=== PATIENT | female | born 1940 | race Caucasian/White ===

== ENCOUNTER 2025-05-08 14:33 | Emergency (ER) | payer MEDICARE, OTHER, SELFPAY ==
[2025-05-08] VITALS (13 sets, daily range): BP systolic 123–169; BP diastolic 88–119; PULSE 73–82
[2025-05-08] MEDS: NSS 500 IV (15:35)
[2025-05-08 15:47] LABS: Hematocrit 38.7 % (37.0-47.0); Hemoglobin 13.1 g/dL (12.0-16.0); Mean Corp Hgb Conc. 33.9 g/dL (33.0-37.0); Mean Corpuscular Volume 96.0 fL (81.0-99.0); Nucleated Red Blood Cells % 0 %; Platelet Count 284 10^3/uL (130-400); Red Cell Dist. Width 12.8 % (11.5-14.5)
[2025-05-08 16:07] LABS: ALT (SGPT) 17 U/L (0-35); AST (SGOT) 25 U/L (14-36); Albumin 4.0 g/dl (3.5-5.0); Alkaline Phosphatase 75 U/L (38-126); Blood Urea Nitrogen 25 mg/dl (7-17); Calcium 9.4 mg/dl (8.4-10.2); Carbon Dioxide 28 mmol/L (22-30); Chloride 106 mmol/L (98-107); Glucose 84 mg/dl (70-99); Magnesium 2.1 mg/dl (1.6-2.3); Potassium 4.3 mmol/L (3.5-5.1); Sodium 139 mmol/L (135-145); Total Protein 6.7 g/dl (6.3-8.2); eGFR 56.25
[2025-05-08 16:38] LABS: TSH 5.16 uIU/ml (0.47-4.68)
--- NOTE | 2025-05-08 18:46 | ED.GENMED ---
History of Present Illness
General
Chief Complaint: Heart Rate Problem
Source: patient
Time Seen by Provider: 05/08/25 14:50
History of Present Illness
History of Present Illness:
Note:
CHIEF COMPLAINT(S)
Dizziness and lightheadedness.
HISTORY OF PRESENT ILLNESS
The patient is an 84-year-old female with a significant cardiac history, including discussions about heart valve replacement and possible cath lab radiological technologist interventions. The patient presented to the emergency department after experiencing dizziness and
lightheadedness for the past few days, which worsened when standing. Her symptoms began last , accompanied by vomiting and persistent hiccups, and she has been sleeping excessively since Saturday. The patients symptoms worsen upon standing and
improve with rest. She denies chest pain, shortness of breath, palpitations, black or bloody stools, fever, or any other systemic symptoms. Historical information reveals a previous transient ischemic attack (mini-stroke) approximately six years
ago, which has impacted her short-term memory. Additionally, she reports extra beats and has been diagnosed with aortic stenosis by her sawmill hand. The patient is on Rivaroxaban for anticoagulation therapy.
ADDITIONAL HISTORY OBTAINED FROM SOURCES OTHER THAN THE PATIENT
Information provided by the patients sealer operator, who is trained in nursing, indicates that the patient has been experiencing hiccups and excessive sleepiness since Saturday. Her heart issues and management of care were coordinated with her
sawmill hand, Dr. Garcia.
CHRONIC MEDICAL CONDITIONS SIGNIFICANTLY AFFECTING CARE
- Cardiac issues including aortic stenosis and possible need for heart valve replacement.
- History of transient ischemic attack (mini-stroke).
- Extra cardiac beats; not in atrial fibrillation.
MEDICATIONS
- Rivaroxaban
- Amiodarone
- Metoprolol
- Gabapentin
REVIEW OF SYSTEMS
- Cardiovascular: Dizziness, lightheadedness upon standing, no chest pain, no shortness of breath.
- Gastrointestinal: No vomiting today, no black or bloody stools.
- Neurological: History of transient ischemic attack affecting memory; reported extra cardiac beats.
- General: Excessive sleepiness and dizziness when standing.
PHYSICAL EXAM
General: Alert, no acute distress.
Heart: Regular rhythm with ectopic beats, loud systolic ejection murmur consistent with aortic stenosis.
Lungs: Clear to auscultation.
Abdomen: Nondistended.
Neurological: Normal examination; oriented. No cerebellar abnormalities. Gait normal. Cranial nerves are intact.
PLAN
- Evaluate electrolytes, kidney function, and hemoglobin levels.
- Administer intravenous fluids and monitor vital signs, including orthostatic blood pressure.
- Continuous monitoring for any cardiac changes.
- Await lab results to guide further management.
DIFFERENTIAL DIAGNOSIS
The Differential Diagnosis includes, in no particular order and is not limited to:
- Orthostatic hypotension
- Aortic stenosis exacerbation
- Dehydration
- Transient ischemic attack
- Cardiac arrhythmia
- Vestibular dysfunction
- Medication side effects
- Anemia
- Electrolyte imbalance
- Neurogenic orthostatic hypotension
EKG
My independent EKG interpretation is:
- Time of EKG: Not provided
- Rhythm: Sinus rhythm with frequent premature atrial contractions
- Heart Rate: 101 bpm
- Notable Intervals: QRS is normal
- [place]: Normal axis
- Abnormalities: No acute ischemic changes
Disposition:
SUMMARY OF ENCOUNTER
The patient, an 84-year-old female, presented to the emergency department with complaints of lightheadedness that primarily occurred upon standing. She was found to be a bit volume contracted, so intravenous fluids were administered. Upon
reassessment, the patient reported feeling somewhat improved. She was able to ambulate normally, and her gait and lung examination were normal. Despite being well-appearing, labs showed a BNP/creatinine ratio of 25:1, slightly elevated TSH at 5.16,
but normal hemoglobin, white count, kidney function, and liver function tests. The patients symptoms were attributed to possible volume depletion and her known aortic stenosis. There was no suspicion of cerebrovascular accident, and her symptoms
were deemed manageable for outpatient follow-up with her primary care physician and sawmill hand.
DISPOSITION
Discharge.
ASSESSMENT
The patients symptoms of dizziness and lightheadedness are likely due to a combination of volume depletion and exacerbation of her aortic stenosis.
PLAN
- Discharge with instructions to follow up with her primary care physician and sawmill hand.
- Continue monitoring symptoms and manage blood pressure with home medications.
- Maintain hydration to prevent further volume contraction.
INDEPENDENT REVIEW OF LABS AND INTERPRETATION OF TESTS
My independent review of the labs indicates normal hemoglobin, normal white blood cell count, normal kidney function, elevated blood urea nitrogen/creatinine ratio of 25:1, normal liver function tests, and mildly elevated thyroid-stimulating hormone
(TSH) at 5.16.
MEDICAL DECISION MAKING
1. Number and Complexity of Problems Addressed: Chronic conditions affecting care include cardiac issues such as aortic stenosis, and history of transient ischemic attack, as well as possible need for heart valve replacement. Differential diagnosis
includes orthostatic hypotension, aortic stenosis exacerbation, dehydration, transient ischemic attack, cardiac arrhythmia, vestibular dysfunction, medication side effects, anemia, electrolyte imbalance, and neurogenic orthostatic hypotension.
2. Data:
Category 1:
- Clinical information obtained from an independent historian.
- Reviewed labs including normal hemoglobin and white count, normal kidney function yet elevated BUN/creatinine ratio and TSH.
- My independent EKG interpretation is sinus rhythm with frequent premature atrial contractions.
3. Risk:
Consideration of Admission/Observation: Escalation of care including admission/observation was considered given the complexity and risk of the patients presenting complaint, exam findings, and underlying comorbidities. However, ultimately it was
determined that the patient is safe for outpatient management with close follow-up, as work-up was reassuring, symptoms were well controlled upon reevaluation, and vitals remained stable. The patient is agreeable with discharge and reliable for
follow-up.
DIAGNOSIS
- Volume depletion (ICD-10: E86.0)
- Aortic stenosis (ICD-10: I35.0)
- Mildly elevated TSH, suspected subclinical hypothyroidism (ICD-10: E03.9)
Phy Exam
Physical Exam
Physical Exam:
.
Course
Orders/Labs/Results
Orders:
Orders
05/08/25 14:40
Electrocardiogram (*1) Urgent
Reason for Study: Atrial Fibrillation
EKG- Treatment ONCE
05/08/25 15:11
Orthostatic VS- Treatment ONCE
05/08/25 15:12
0.9% Sodium Chloride 500 ml [Nss] 500 ml IV BOLUS
05/08/25 15:35
Complete Blood Count/With Diff Urgent
Comprehensive Metabolic Panel Urgent
Magnesium Urgent
TSH Urgent
Abnormal Lab Results
05/08/25
15:35
RBC 4.03 L 10^6/uL
(4.20-5.40)
MCH 32.5 H pg
(27.0-31.0)
Absolute Monos (auto) 1.0 H 10^3/uL
(0.1-0.6)
Monocytes % 14.1 H %
(1.7-9.3)
BUN 25 H mg/dl
(7-17)
TSH 5.16 H uIU/ml
(0.47-4.68)
05/08/25 15:35
05/08/25 15:35
Vital Signs
Initial and Last Documented VS:
Initial Vital Signs
Temp Pulse Resp BP Pulse Ox
98.1 F 128 18 123/88 94
05/08/25 14:36 05/08/25 14:36 05/08/25 14:36 05/08/25 14:36 05/08/25 14:36
Last Documented Vital Signs
Temp Pulse Resp BP Pulse Ox
98.1 F 88 23 148/116 94
05/08/25 14:36 05/08/25 19:15 05/08/25 19:15 05/08/25 19:00 05/08/25 18:48
*Pulse Oximetry
SaO2: 94
Oxygen Mode of Delivery: Room air
Patient hypoxic: no
*Critical Care Note
Total Time (30-74mins, 75-104mins- exclusive of procedures): Not Applicable
ED Attending Note
-
Portions of this chart may have been created with voice recognition software.� Occasional wrong word or��sound alike� substitutions may have occurred due to the inherent limitations of voice recognition software.
Discharge Plan
Departure
Patient Disposition: Home (Routine Discharge)
Date of Disposition: 05/08/25
Time of Disposition: 18:46
Patient with high blood pressure during this ER visit?: Yes
Discharge Problem:
Episodic lightheadedness, Cardiac valvulopathy
Instructions: Dizziness in adults - ED discharge instructions, BLOOD PRESSURE
Prescriptions:
No Action
multivitamin 1 EACH tablet
1 ea PO DAILY
atorvastatin [Lipitor] 40 MG tablet
40 mg PO QPM
amiodarone [Pacerone] 200 MG tablet
200 mg PO DAILY
black cohosh 540 MG capsule
540 mg PO DAILY
omeprazole 40 MG capsule,delayed release(DR/EC)
40 mg PO DAILY
calcium carbonate 600 MG tablet
600 mg PO BID
biotin 1 MG tablet
1 mg PO QPM
fish oil-dha-epa 1 EACH capsule
1 ea PO QPM
light mineral oil-mineral oil [Soothe XP] 15 ML drops
15 ml OP PRN PRN (Reason: as needed)
coenzyme A40-gskfuia E 1 CAP capsule
1 cap PO DAILY
rivaroxaban [Xarelto] 20 MG tablet
20 mg PO QPM
vit C,E-Lc-jnzmn-lutein-zeaxan [PreserVision AREDS-2] 1 EACH capsule
1 ea PO BID
losartan 25 MG tablet
25 mg PO DAILY Qty: 90 10RF
Referrals:
Sam Abraham MD [Family Provider, Family Practice]
Activity Restrictions/Additional Instructions:
Please see your doctor in the next 2 to 3 days for follow-up and reevaluation. Please have your doctor follow-up on your lab results. Return immediately for worsening symptoms, chest pain, shortness of breath, palpitations, difficulty walking or
any other concerns. Please also see your sawmill hand in follow-up as your symptoms may be related to your valvular disease.
Interventions
Interventions:
*General Assessment Last Done: 05/08/25 14:36
*Neglect/Abuse Screening Last Done: 05/08/25 14:36
*Nursing Disposition Last Done: 05/08/25 19:47
ED- Cardiac Assessment Last Done: 05/08/25 16:00
ED- Pulmonary Assessment Last Done: 05/08/25 16:00
Discharge Date and Time
Discharge Date/Time: 05/08/25 19:47
Print Language: SAMI
== END 2025-05-08 19:47 | disposition home or self-care (01) ==
LOC: EMR 14:33
PROVIDERS: EMERGENCY PHYSICIAN Emergency Medicine; FAMILY PHYSICIAN Family Medicine
DX: R42 Dizziness and giddiness (principal); I35.0 Nonrheumatic aortic (valve) stenosis; R03.0 Elevated blood-pressure reading, without diagnosis of hypertension; I69.311 Memory deficit following cerebral infarction; Z79.01 Long term (current) use of anticoagulants
CPT/HCPCS: 99284; 96360; 96361; 80053; 83735; 84443; 85025; 93005

== ENCOUNTER 2025-06-09 08:59 | Day surgery (SDC) | payer MEDICARE, OTHER, SELFPAY ==
[2025-06-09] VITALS (11 sets, daily range): BP systolic 120–149; BP diastolic 77–108; BMI 24.2
[2025-06-09 09:26] LABS: Hematocrit 40.7 % (37.0-47.0); Hemoglobin 14.0 g/dL (12.0-16.0); Mean Corp Hgb Conc. 34.4 g/dL (33.0-37.0); Mean Corpuscular Volume 96.0 fL (81.0-99.0); Platelet Count 320 10^3/uL (130-400); Red Cell Dist. Width 12.5 % (11.5-14.5)
[2025-06-09] MEDS: LOW STRENGTH ASPIRIN 324 MG PO (09:50)
[2025-06-09 10:42] LABS: Blood Urea Nitrogen 24 mg/dl (7-17); Calcium 10.3 mg/dl (8.4-10.2); Carbon Dioxide 29 mmol/L (22-30); Chloride 107 mmol/L (98-107); Estimated Creatinine Clearance 29 ml/min; Glucose 108 mg/dl (70-99); Potassium 4.9 mmol/L (3.5-5.1); Sodium 142 mmol/L (135-145); eGFR 45.19
--- NOTE | 2025-06-09 11:05 | ITS.CL.CATH ---
Security Guard - Catheterization
Cardiac Catheterization
Procedure Report:
LEFT HEART CATHETERIZATION
Date of Procedure: June 09, 2025
Procedures performed:
1: Coronary angiography
2: Left ventricular hemodynamic assessment
Primary Care Physician: KELLY Rivera
Primary Float Operator: Dr. Tu Garcia
INDICATION: The patient is a 84-year-old woman with a past medical history significant for persistent atrial fibrillation on Xarelto and amiodarone, status post stroke with some cognitive decline, and hypertension who presents with progressive
severe aortic stenosis. She is referred for cardiac catheterization in preparation for possible aortic valve intervention workup.
ACCESS: The patient was prepped and draped in usual sterile fashion. A 5 [place] sheath was placed in the right radial artery using the Seldinger over the wire technique. Attempts to cannulate the right radial artery were not successful despite
using ultrasound. It is a very small caliber vessel.
HEMODYNAMIC FINDINGS (mmHg):
LV(s/d,EDP): 181/6, 8
Ao(s/d,m): 142/97, 117
Mean aortic valve gradient on pullback 34mmHg
ANGIOGRAPHIC FINDINGS:
Single-plane Left Ventriculography in STEVENSON Projection: Not done.
Coronary Angiography:
Dominance: Right
Left Main: Large caliber, widely patent.
Left Anterior Descending: The left anterior descending artery is a large-caliber vessel that gives rise to 2 major obtuse marginal branches. These vessels are widely patent with no focal obstructive disease and only mild luminal irregularities.
Left Circumflex: The left circumflex is a large-caliber nondominant vessel that gives rise to 1 large branching obtuse marginal branch. There is a smooth 40 to 50% mid circumflex lesion. All vessels have normal flow.
Right Coronary: The right coronary artery is a relatively large caliber dominant vessel that gives rise to 2 small dual posterior descending arteries and a larger posterior left ventricular branch. There are mild diffuse luminal irregularities in
the midportion but no evidence of focal obstructive disease.
Fluoroscopy Time (min): 8.6
Radiation Dose (mGy): 212
DAP (Gy.cm2): 15.8
Closure device: None. The 5 [place] sheath was pulled with manual pressure using a closure patch without acute complication.
Complications: None.
ASSESSMENT:
1: Nonobstructive coronary artery disease.
2: Severe aortic valvular stenosis.
CONCLUSIONS and RECOMMENDATIONS:
1: Proceed with TAVR evaluation.
2: Groin check on Saturday in my office. Do not resume Xarelto until groin check okay on Saturday.
3: Clinical follow-up with Dr. Garcia as scheduled.
Gia Zamorano M.D.
Copy to: KELLY Rivera
[2025-06-09] MEDS: NSS 1000 IV (11:33)
--- NOTE | 2025-06-09 13:17 | CONSULT.STRU ---
Consultation
-
Date/Time Consultation Requested: 06/09/2025 1130
Date/Time Consultation Performed: 06/09/2025 1145
Requesting Provider: Dr. Zamorano
Performing Provider: Shonda MENDOZA
Reason for Consultation: Aortic stenosis/ TAVR evaluation
Patient History
Physicians
Family Physician: KELLY Rivera
Outpatient .Net Programmer: Tu Garcia DO
Primary .Net Programmer: Tu Garcia DO
History of Present Illness
Mrs. Bailey is a very pleasant 84yo female with known history of aortic stenosis that has been followed by Dr. Garcia. She recently has had some vague symptoms of very mild HILL when climbing stairs but no limitations in completing her ADLS. She has
episodes where she gets dizzy and vomits but drinks water and feels better. Denies chest pain, palpitations, orthopnea and PND. Her history is also significant for atrial tachycardia with prior ablation, afib on Xarelto with a Chads Vasc of 6, HTN,
hyperlipidemia, CVA/TIA (residual mild cognitive impairment). Her echocardiogram on 04/21/2025 was notable for AV PG/M.4/53.0, OSEAS: 0.47, trace AI, mild to moderate MR, EF 55-60%. She underwent cardiac cath today and AV MG on pullback was
34mmHg. She has non-obstructive coronary disease.
Reviewed the pathophysiology of aortic stenosis as well as the treatment options of TAVR and SAVR. Explained the TAVR evaluation process including follow up labs, CT scan, CT surgery consult. Provided with TAVR education booklet and all
appointments. Allowed for and answered questions.
Past Medical History
Past Medical History: Arrhythmias (Atrial tachycardia), Atrial Fib (on Xarelto, ChadsVasc:6), Cancer (h/o ductal carcinoma right breast), CVA/TIA (6 years ago, residual short term memory deficits), GERD, HTN, Hypercholesterolemia, Valvular Disease
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
Past Surgical History
Past Surgical History: Other (cardiac ablation, right partial mastectomy, right foot surgery, carpel tunnel release, tubal ligation)
Dental History
Has not seen a dentist recently, will call office with name.
Family History
Mother: N/A
Father: N/A
Social History
Alcohol: Occasional
Drug: None
Tobacco: Former Smoker
Personal:
Living: With Spouse
Allergies
Allergy/AdvReac Type Severity Reaction Status Date / Time
No Known Allergies Allergy Verified 05/08/25 14:36
Home Medications
�Medication �Instructions �Recorded �Confirmed �Type
amiodarone 200 mg tablet (Pacerone) 200 mg PO DAILY 04/14/19 06/09/25 History
biotin 1 mg tablet 1 mg PO QPM 04/14/19 06/09/25 History
rivaroxaban 20 mg tablet (Xarelto) 20 mg PO QPM 04/14/19 06/09/25 History
Held on 06/09/25.
Instructions: Resume on
06/11/25. Hold until seen by
cardiology
vit C 250 mg-vit E 90 mg-zinc 40 1 ea PO BID 04/14/19 06/09/25 History
mg-copper 1 kn-vudxug-wigmua
capsule (PreserVision AREDS-2)
anastrozole 1 mg tablet 1 mg PO DAILY 06/09/25 06/09/25 History
metoprolol succinate 50 mg 50 mg PO DAILY 06/09/25 06/09/25 History
tablet,extended release 24 hr
STS%
STS %: 5.2%
Review of Systems
-
History Source: Patient
General: Reports Fatigue
HEENT: Reports No Symptoms
Respiratory: Reports HILL (mild); Denies SOB
Cardiac: Reports No Symptoms; Denies Palpitations or Edema
Abdomen/GI: Reports Vomiting (when she feels dizzy); Denies Reflux, Nausea or Diarrhea
: Reports No Symptoms
Neurological: Reports CVA, TIA and Dizzy
Vascular: Reports No Symptoms
Physical Exam
Vital Signs
Temp 97.9 F 06/09/25 11:18
Temp route: Oral 06/09/25 11:18
Pulse 86 06/09/25 12:45
Resp Rate 26 06/09/25 12:45
Blood pressure 149/94 06/09/25 12:32
Blood pressure extremity used: Left upper arm 06/09/25 11:18
Position: Lying 06/09/25 11:18
MAP (cuff-Giovani Monitor) 106 06/09/25 12:32
SaO2 98 06/09/25 12:45
Oxygen Mode of Delivery Room air 06/09/25 11:18
Can the patient verbally communicate their pain? Yes 06/09/25 12:59
Actual Weight 59.9 kg 06/09/25 09:19
Body Mass Index (BMI) 24.2 06/09/25 09:19
Labs
06/09/25 09:10
06/09/25 09:10
Diagnostic Studies
06/09/2025 Cardiac Catheterization:
HEMODYNAMIC FINDINGS (mmHg):
LV(s/d,EDP): 181/6, 8
Ao(s/d,m): 142/97, 117
Mean aortic valve gradient on pullback 34mmHg
ANGIOGRAPHIC FINDINGS:
Single-plane Left Ventriculography in [place]EVENSON Projection: Not done.
Coronary Angiography:
Dominance: Right
Left Main: Large caliber, widely patent.
Left Anterior Descending: The left anterior descending artery is a large-caliber vessel that gives rise to 2 major obtuse marginal branches. These vessels are widely patent with no focal obstructive disease and only mild luminal irregularities.
Left Circumflex: The left circumflex is a large-caliber nondominant vessel that gives rise to 1 large branching obtuse marginal branch. There is a smooth 40 to 50% mid circumflex lesion. All vessels have normal flow.
Right Coronary: The right coronary artery is a relatively large caliber dominant vessel that gives rise to 2 small dual posterior descending arteries and a larger posterior left ventricular branch. There are mild diffuse luminal irregularities in
the midportion but no evidence of focal obstructive disease.
Fluoroscopy Time (min): 8.6
Radiation Dose (mGy): 212
DAP (Gy.cm2): 15.8
Closure device: None. The 5 Hebrew sheath was pulled with manual pressure using a closure patch without acute complication.
Complications: None.
ASSESSMENT:
1: Nonobstructive coronary artery disease.
2: Severe aortic valvular stenosis.
CONCLUSIONS and RECOMMENDATIONS:
1: Proceed with TAVR evaluation.
2: Groin check on Saturday in my office. Do not resume Xarelto until groin check okay on Saturday.
3: Clinical follow-up with Dr. Garcia as scheduled.
04/21/2025 Echocardiogram:
-LVEF 55-60%
-Moderate cocentric LVH
-Tricuspid AV, critical , AoV velocity 4.40m/s, PG/M.4/53.0 OSEAS: 0.47
-Mild to moderate MR
Exam
General: Well Developed, Well Nourished, No Apparent Distress and Comfortable
HEENT: Normocephalic, Moist Mucous Membranes and PERRLA
Neck: Trachea Midline
Respiratory: Clear; Negative Wheezes, Crackles or Rhonchi
Cardiac: S1/S2, Regular Rhythm and Murmur (Grade II/ ILDA)
GI: Soft, Non Tender, Non Distended and Normal Bowel Sounds
Rectal: Deferred by Provider
Skin: Warm and Dry
Neuro: AO x 3 and Nonfocal/Grossly Intact
Extremities: Pulses (+2 pedal pulses); Negative Lower Level Edema
Psych: Calm
Assessment / Plan
-
Procedure Type:�Isolated AVR
Perioperative Outcome Estimate %
Operative Mortality 5.2%
Morbidity & Mortality 10.8%
Stroke 3.58%
Renal Failure 2.44%
Reoperation 2.5%
Prolonged Ventilation 6.99%
Deep Sternal Wound Infection 0.055%
Long Hospital Stay (>14 days) 5.49%
Short Hospital Stay (<6 days)* 23.5%
Severe Aortic stenosis:
����������� Continue evaluation for aortic stenosis as outpatient
����������� BMP 06/16/2025 at [facility]
����������� CT TAVR scan 06/22/2025 at [facility]
����������� CT surgery consult with Dr. Waddell� 07/06/2025
����������� Dental Clearance � needs to see dentist
����������� Heart team discussion at [facility]
Data Reviewed
-
EKG: Report Reviewed by me
Heading And Priming Tool Setter: Report Reviewed by me and Discussed with Physician
Echo: Report Reviewed by me, Discussed with Physician and Discussed with Patient
Labs: Labs Reviewed by me
Old Records: Reviewed (office notes)
Total Time Spent with Patient (in minutes): 45
== END 2025-06-09 14:50 | disposition home or self-care (01) ==
LOC: CATH 08:59
PROVIDERS: ATTENDING PHYSICIAN Internal Medicine Interventional Cardiology; FAMILY PHYSICIAN Nurse Practitioner Family
DX: I25.10 Atherosclerotic heart disease of native coronary artery without angina pectoris (principal); I35.0 Nonrheumatic aortic (valve) stenosis; I10 Essential (primary) hypertension; Z86.73 Personal history of transient ischemic attack (TIA), and cerebral infarction without residual deficits; Z79.01 Long term (current) use of anticoagulants; I48.19 Other persistent atrial fibrillation; Z85.3 Personal history of malignant neoplasm of breast; E78.00 Pure hypercholesterolemia, unspecified; I48.4 Atypical atrial flutter; H54.62 Unqualified visual loss, left eye, normal vision right eye; Z87.11 Personal history of peptic ulcer disease; Z87.891 Personal history of nicotine dependence; Z98.51 Tubal ligation status; I47.19 Other supraventricular tachycardia; K21.9 Gastro-esophageal reflux disease without esophagitis
CPT/HCPCS: 80048; 85027; 93005; 93458; C1769; C1894; Q9967